=== PATIENT | male | born 1980 | race African-American/Black ===

== ENCOUNTER 2019-06-16 23:35 | Emergency (ER) | payer OTHER ==
[2019-06-17 00:13] VITALS: BP 125/69; PULSE 73; TEMP 98.1; BMI 23.1
[2019-06-17] MEDS ORDERED: metroNIDAZOLE 250 MG TABLET PO ONE (01:01)
[2019-06-17] MEDS ORDERED: AZITHROMYCIN 500 MG TABLET PO ONE (01:01)
--- NOTE | 2019-06-17 01:15 | PDOC ---
History of Present Illness - General Chief Complaint: Abnormal Lab Results (Outside) Stated Complaint: STD TESTING Time Seen by Provider: 06/17/19 00:41 - History of Present Illness Initial Comments: 06/17/19 01:11 HPI: 39 y/o M with no pmh presenting for STD testing. He states his partner was just called and told had positive results for trichmoniasis. Patient is completely asymptomatic with no penile/scrotal pain, no penile discharge, no fevers, no abd pain, no flank pain, no dysuria or hematuria. PMHx: as noted above ROS: as noted SHx: Denies tobacco use; no alcohol use; no rec drugs Allergies: NKDA ROS: GENERAL/CONSTITUTIONAL: No fever or chills. No weakness. HEAD, EYES, EARS, NOSE AND THROAT: No change in vision. No ear pain or discharge. No sore throat. CARDIOVASCULAR: No chest pain or shortness of breath RESPIRATORY: No cough, wheezing, or hemoptysis. GASTROINTESTINAL: No nausea, vomiting, diarrhea or constipation. GENITOURINARY: No dysuria, frequency, or change in urination. MUSCULOSKELETAL: No joint or muscle swelling or pain. No neck or back pain. SKIN: No rash NEUROLOGIC: No headache, vertigo, loss of consciousness, or change in strength/ sensation. ENDOCRINE: No increased thirst. No abnormal weight change HEMATOLOGIC/LYMPHATIC: No anemia, easy bleeding, or history of blood clots. ALLERGIC/IMMUNOLOGIC: No hives or skin allergy. PE: GENERAL: Awake, alert, and fully oriented, no acute distress HEAD: No signs of trauma, normocephalic, atraumatic EYES: EOMI, sclera anicteric, conjunctiva clear ENT: Auricles normal inspection, hearing grossly normal, nares patent, oropharynx clear without exudates. Moist mucosa NECK: Normal ROM, no lymphadenopathy LUNGS: No increased work of breathing, symmetrical chest rise, clear to auscultation bilaterally, no wheezes, crackles or rhonchi HEART: Regular rate and rhythm, normal S1 and S2, no murmurs, peripheral pulses 2+ and equal bilaterally. ABDOMEN: Soft, nondistended, nontender, normoactive bowel sounds. No guarding, no rebound. No masses. No CVAT : normal appearing genitalia, no blood or discharge at the meatus, no scrotal masses or ttp, no penile ttp, no inguinal lymphadenopathy EXTREMITIES: Normal inspection, Normal range of motion, no edema. No clubbing or cyanosis. NEUROLOGICAL: Cranial nerves II through XII grossly intact. Normal speech, normal gait, no focal sensorimotor deficits SKIN: Warm, Dry, normal turgor, no rashes or lesions noted Past History - Past Medical History Allergies/Adverse Reactions: Allergies Allergy/AdvReac Type Severity Reaction Status Date / Time No Known Allergies Allergy Verified 06/17/19 00:08 COPD: No - Psycho Social/Smoking Cessation Hx Smoking History: Never smoked *Physical Exam - Vital Signs Last Vital Signs Temp Pulse Resp BP Pulse Ox 98.1 F 73 16 125/69 99 06/17/19 00:06 06/17/19 00:06 06/17/19 00:06 06/17/19 00:06 06/17/19 00:06 Medical Decision Making - Medical Decision Making 06/17/19 01:13 39 y/o M with no pmh presenting for STD testing due to positive trich in partner. No current symptoms. VSS, AF. PE unremarkable -will test for GC -will treat with ceftriaxone 250mg IM, azithromycin 1g PO, flagyl 2g PO -will DC home; patient will be called with results Discharge - Discharge Information Problems reviewed: Yes Clinical Impression/Diagnosis: STD exposure Condition: Stable Disposition: HOME - Follow up/Referral Referrals: Gonzales Veliz MD [Primary Care Provider] - - Patient Discharge Instructions Patient Printed Discharge Instructions: Facts About Sexually Transmitted Infections, and STDs, DI for Trichomoniasis Additional Instructions: Additional Instructions: Please return to the emergency department with any new or worsening symptoms or concerns. Please follow up with your primary care physician within 72 hours as needed for any concerns Abstain from alcohol for 24 hours following medication administration for negative side effects. Abstain from sexual intercourse for 1 week after completion of medication We recommend you engage in safe sex practices and use condoms You will be called with results of your test - Post Discharge Activity
[2019-06-17] MEDS ORDERED: cefTRIAXone SODIUM 1 GM VIAL ONE (01:16)
[2019-06-17] MEDS ORDERED: AZITHROMYCIN 250 MG TABLET ONE (01:16)
[2019-06-17] MEDS ORDERED: metroNIDAZOLE 250 MG TABLET ONE (01:16)
[2019-06-17] MEDS ORDERED: LIDOCAINE HCL 2% (20ML MULTI-DOSE VIAL) ONE (01:18)
--- NOTE | 2019-06-17 01:38 | PDOC ---
Documentation entered by Levy Early SCRIBE, acting as scribe for Angélica León MD. Angélica León MD: This documentation has been prepared by the Sharath blevins Nirvannie, SCRIBE, under my direction and personally reviewed by me in its entirety. I confirm that the documentation accurately reflects all work, treatment, procedures, and medical decision making performed by me. Attending Attestation - Resident Resident Name: Evelyne Grimaldo - ED Attending Attestation I have performed the following: I have examined & evaluated the patient, The case was reviewed & discussed with the resident, I agree w/resident's findings & plan, Exceptions are as noted - HPI HPI: 06/17/19 01:19 The patient is a 39 year old male, with a significant past medical history of, who presents to the emergency department with, STD testing. As per patient, girlfriend tested positive for trichomonas, prompting his arrival to the ED. Allergies: NKDA - Physicial Exam PE: 06/17/19 01:37 39-year-old male presents for antibiotics I agree with Dr. Evelyne Grimaldo's physical exam - Medical Decision Making 06/17/19 01:38 pt received treatment for trichomonas
== END 2019-06-17 01:40 | disposition home or self-care (01) ==
LOC: JER 23:35
DX: Z11.3 Encounter for screening for infections with a predominantly sexual mode of transmission (principal)
CPT/HCPCS: 36415; 87491; 87591; 99281-25

== ENCOUNTER 2020-02-20 04:52 | Day surgery (SDC) | payer OTHER ==
[2020-02-18 15:47] VITALS: BMI 23.1
[2020-02-20] MEDS ORDERED: PROPOFOL 20 ML ONE (12:39)
[2020-02-20] MEDS ORDERED: MIDAZOLAM HCL 2 MG/2 ML SINGLE DOSE VIAL ONE (12:39)
[2020-02-20] MEDS ORDERED: LIDOCAINE 1%/EPI 1:100000 (20 ML MULTI DOSE VIAL) ONE (13:26)
[2020-02-20] MEDS ORDERED: oxyCODONE HCL 5 MG TABLET PO PRN (13:26)
[2020-02-20] MEDS ORDERED: ONDANSETRON 4 MG/2 ML VIAL IVPUSH PRN (13:26)
[2020-02-20] MEDS ORDERED: BACITRACIN 15 GM TUBE TOPICAL OINTMENT ONE ×2 (13:27→15:40)
[2020-02-20] MEDS ORDERED: LACTATED RINGERS SOLUTION 1,000 ML IV SCH (13:30)
--- NOTE | 2020-02-20 13:44 | HP ---
History & Physical Update - History History: No Change - Physical Physical: No Change - Assessment Assessment: No Change - Plan Plan: No Change
[2020-02-20] MEDS ORDERED: ceFAZolin SODIUM 1 GM VIAL IVPB ONE (14:20)
[2020-02-20] MEDS ORDERED: LIDOCAINE 1%/EPI 1:100000 (20 ML MULTI DOSE VIAL) IJ ONE ×2 (14:29)
[2020-02-20] MEDS ORDERED: DEXAMETHASONE SOD PHOSPHATE 4 MG/1 ML VIAL ONE (14:31)
[2020-02-20] MEDS ORDERED: ceFAZolin SODIUM 1 GM VIAL ONE (14:31)
[2020-02-20] MEDS ORDERED: KETOROLAC TROMETHAMINE 30 MG/1 ML VIAL ONE (14:31)
[2020-02-20] MEDS ORDERED: BACITRACIN 15 GM TUBE TOPICAL OINTMENT TP ONE (15:05)
--- NOTE | 2020-02-20 15:19 | OP ---
Operative Note - Note: Operative Date: 02/20/20 Pre-Operative Diagnosis: left pareito-occipital cyst Operation: Excision of left parieto-occipital scalp cyst Findings: 2 cm cyst firmly adherent to the occipitalis muscle Post-Operative Diagnosis: Same as Pre-op Surgeon: Jameson Hathaway Anesthesiologist/APPEALS OFFICER: Lynette Cordero Anesthesia: General Specimens Removed: scalp cyst Estimated Blood Loss (mls): 10 Operative Report Dictated: Yes
[2020-02-20 15:44] VITALS: TEMP 98
--- NOTE | 2020-02-20 16:02 | OP ---
DATE OF OPERATION: 02/20/2020 OPERATIVE PROCEDURE: Excision of left parietooccipital cyst. PREOPERATIVE DIAGNOSIS: Left parietooccipital cyst. POSTOPERATIVE DIAGNOSIS: Left parietooccipital cyst. SURGEON: Jameson Hathaway MD ANESTHESIA: General by laryngeal mask airway. INDICATION FOR PROCEDURE: This is a 39-year-old male who presents with longstanding history of slowly growing cystic mass of the left parietooccipital region, recently associated with pain on pressure and headache. On physical exam, patient has a 2-cm cystic mass of the left parietooccipital region, so patient was advised excision of the cyst and consent was obtained after discussing the risks, benefits, and alternatives to the procedure. DESCRIPTION OF PROCEDURE: Patient was brought to the operating room and placed in beach chair position. General anesthesia by laryngeal mask airway was administered. Patient's head was then turned to the right side for proper exposure. The operative site was prepped and draped in the usual sterile fashion. Using lidocaine 1% with epinephrine, local anesthesia was administered to the proposed incision site for vasoconstriction. A 2 x 1-cm elliptical incision was made over the cystic mass using scalpel blade No. 15, and dissection was carried down to the deep dermis using the iris scissors. During the procedure, the cyst was inadvertently punctured, and the cyst wall was noted to be closely adherent to the underlying subcutaneous tissue and the occipitalis muscle. After the cyst was completely excised, further excision of gritty subcutaneous tissue was done to ensure all the cyst capsule was removed. Hemostasis was achieved using Bovie cautery. The wound was then copiously irrigated with sterile normal saline until return was clear. The wound was closed with interrupted vertical mattress 3-0 nylon sutures and dressed with Bacitracin ointment. Patient was successfully extubated and transferred to the postanesthesia care unit in satisfactory condition. Estimated blood loss was about 10 mL. WOUND CLASS: Clean. The patient received 2 g of Ancef prior to the start of the procedure. Jarett [id number] MTDD
[2020-02-20 17:49] VITALS: BP 140/76; PULSE 60
--- NOTE | 2020-02-24 17:31 | PATH ---
Surgical Pathology Report Patient Name: TOMAS DALAL Med. Rec. #: [id number] /Age/Gender: 1980 (Age: 39) / M Account: [id number] Location: [facility] Taken: 02/20/2020 Received: 02/23/2020 Reported: 02/24/2020 Physicians: Jameson Hathaway M.D. Specimen(s) Received LEFT PARIETAL CYST Clinical History Left parietal mass Final Diagnosis PARIETAL CYST, LEFT, EXCISION: RUPTURED AND INFLAMED EPIDERMAL INCLUSION CYST. Electronically Signed Aruna Rangel M.D. Gross Description Received in formalin labeled "left parietal cyst," is a 1.5 x 0.4 cm noonan, elliptical, unoriented portion of skin excised to depth of 0.7 cm. The epidermal surface is unremarkable. Sectioning reveals a possible disrupted cystic structure. The base is inked purple and the specimen is serially sectioned. The specimen is entirely submitted in one cassette. /02/23/2020 [facility]02/23/2020
== END 2020-02-20 16:35 | disposition home or self-care (01) ==
LOC: JASU-SURG 04:52
PROVIDERS: ATTEND Surgery
PROC: 0HB0XZZ Excision of Scalp Skin, External Approach (ICD-10-PCS; principal; 2020-02-20 13:00)
DX: L72.3 Sebaceous cyst (principal)
CPT/HCPCS: 88304-TC; 94760